=== PATIENT | male | born 1970 | race Caucasian/White ===

== ENCOUNTER → 2018-06-08 14:26 | Outpatient (CLI) | payer BC, SELFPAY ==
--- NOTE | 2018-06-08 14:28 | DI.RAD.S_ITS ---
PROCEDURE: XR CHEST 2V INDICATIONS: cough TECHNIQUE: 2 views of the chest were acquired. COMPARISON: None. FINDINGS: Surgical changes and devices: None. Lungs and pleura: Bilateral lower lobe infiltrates, left greater right, suspicious for pneumonia. No pleural effusions or pneumothorax. Mediastinum: Mediastinal contours are normal. Heart size is normal. Bones and chest wall: No suspicious bony abnormalities. Soft tissues appear unremarkable. IMPRESSION: Bilateral lower lobe pneumonia. Dictated by: Lola Graham M.D. on 06/08/2018 at 17:13 Approved by: Lola Graham M.D. on 06/08/2018 at 17:15
== END ==
PROVIDERS: Visit Provider Physician Assistant
DX: R05 Cough (principal); J18.9 Pneumonia, unspecified organism
CPT/HCPCS: 71046

== ENCOUNTER → 2024-07-16 16:24 | Outpatient (CLI) | payer BC, SELFPAY ==
--- NOTE | 2024-07-16 16:25 | DI.RAD.S_ITS ---
PROCEDURE: XR CHEST 2V INDICATIONS: Cough TECHNIQUE: 2 views of the chest were acquired. COMPARISON: None. FINDINGS: Surgical changes and devices: None. Lungs and pleura: Early consolidation of the superior left lower lobe. Mediastinum: Mediastinal contours are normal. Heart size is normal. Bones and chest wall: No suspicious bony abnormalities. Soft tissues appear unremarkable. IMPRESSION: Early consolidation of the superior left lower lobe concerning for pneumonia. Recommend follow-up in 1-2 months with chest x-ray to ensure resolution. Dictated by: Yossi Melgar M.D. on 07/16/2024 at 16:42 Approved by: Yossi Melgar M.D. on 07/16/2024 at 16:42
== END ==
PROVIDERS: Referring Provider Nurse Practitioner Family; Visit Provider Nurse Practitioner Family
DX: R05.9 Cough, unspecified (principal)
CPT/HCPCS: 0241U; 71046

== ENCOUNTER → 2024-07-16 16:26 | Outpatient (CLI) | payer BC, SELFPAY ==
[2024-07-16 17:31] LABS: COVID-19 CEPHEID 4-PLEX PCR Negative (Negative); Influenza A - CEPHEID Flu A NEGATIVE (NEGATIVE); Influenza B - CEPHEID Flu B NEGATIVE (NEGATIVE); Respiratory Syncytial Virus POSITIVE (Negative)
== END ==
PROVIDERS: Visit Provider Nurse Practitioner Family
DX: R05.9 Cough, unspecified (principal)
CPT/HCPCS: 0241U